=== PATIENT | female | born 1935 | race Caucasian/White ===

== ENCOUNTER → 2020-10-03 | Outpatient (CLI) | payer MEDICARE ==
[~2020-10-03] MED LIST: ATEN25TA PO; CARB-218 PO; CLIN150C15 PO; DONE10TA14 PO; GABA300C10 PO; HYDR-3237 PO; L.AC1CAP4 PO; LISI-170 PO; MEMA10TA PO; METH750T87 PO; OLME40TA12 PO; ONDA4TAB7 PO; PROP10TA16 PO; QUET25TA7 PO; RABE20TA18 PO; RABE20TA29 PO; SUCR1TAB PO
== END | disposition home or self-care (01) ==
LOC: RAD 15:18
PROVIDERS: ATTEND Family Medicine
DX: S13.150A Subluxation of C4/C5 cervical vertebrae, initial encounter (principal); M50.33 Other cervical disc degeneration, cervicothoracic region; M48.03 Spinal stenosis, cervicothoracic region; M51.37 Other intervertebral disc degeneration, lumbosacral region; M48.07 Spinal stenosis, lumbosacral region; X58.XXXA Exposure to other specified factors, initial encounter; Y93.89 Activity, other specified; Y92.89 Other specified places as the place of occurrence of the external cause; Y99.8 Other external cause status
CPT/HCPCS: 72050; 72072; 72110